=== PATIENT | female | born 1975 | race Two or more races ===

== ENCOUNTER 2017-09-14 10:57 | Outpatient (CLI) | payer MEDICAID ==
[~2017-09-14] VITALS: Ht 167.6 cm; Wt 84.5 kg
[2017-09-14 11:15] VITALS: BP 133/84
[2017-09-14 11:23] LABS: BASOPHILS # (AUTO) 0.05 x10^3/uL (0-0.1); BASOPHILS % (AUTO) 0 % (0-1); EOSINOPHILS # (AUTO) 0.06 x10^3/uL (0-0.4); EOSINOPHILS % (AUTO) 1 % (1-7); LYMPHOCYTES # (AUTO) 1.33 x10^3/uL (1-3.4); LYMPHOCYTES % (AUTO) 12 % (22-44); MD NO; MEAN CORPUSCULAR HEMOGLOBIN 28.4 pg (27.0-34.8); MEAN CORPUSCULAR HGB CONC 33.4 g/dL (32.4-35.8); MEAN CORPUSCULAR VOLUME 85.1 fL (80-100); MEAN PLATELET VOLUME 9.3 fL (7.4-10.4); MONOCYTES # (AUTO) 0.41 x10^3/uL (0.2-0.8); MONOCYTES % (AUTO) 4 % (2-9); NEUTROPHILS # (AUTO) 9.05 x10^3/uL (1.8-6.8); NEUTROPHILS % (AUTO) 83 % (42-75); PLATELET COUNT 247 x10^3/uL (130-400); RED BLOOD COUNT 4.27 x10^6/uL (3.82-5.3); RED CELL DISTRIBUTION WIDTH 13.3 % (9.6-15.2)
[2017-09-14 11:37] LABS: ALANINE AMINOTRANSFERASE 17 U/L (12-78); ALBUMIN 2.7 g/dL (3.4-5.0); ANION GAP 8 mmol/L (5-15); CALCIUM 8.5 mg/dL (8.5-10.1); CHLORIDE 107 mmol/L (98-107)
[2017-09-14 11:40] LABS: ALKALINE PHOSPHATASE 114 U/L (45-117); BILIRUBIN,TOTAL 0.2 mg/dL (0.2-1.0); CREATININE 0.63 mg/dL (0.55-1.02)
[2017-09-14 11:55] LABS: MICROSCOPIC INDICATED
== END 2017-09-14 13:05 | disposition home or self-care (01) ==
LOC: LDOP 10:57
PROVIDERS: ATTEND Obstetrics & Gynecology
DX: O10.913 Unspecified pre-existing hypertension complicating pregnancy, third trimester (principal); Z3A.35 35 weeks gestation of pregnancy
CPT/HCPCS: 36415; 59025; 80053; 81001; 82570; 84156; 84550; 85025; 99201; G0463

== ENCOUNTER 2017-09-22 11:46 | Outpatient (CLI) | payer MEDICAID ==
[2017-09-22 13:10] LABS: BASOPHILS # (AUTO) 0.01 x10^3/uL (0-0.1); BASOPHILS % (AUTO) 0 % (0-1); EOSINOPHILS # (AUTO) 0.12 x10^3/uL (0-0.4); EOSINOPHILS % (AUTO) 1 % (1-7); LYMPHOCYTES # (AUTO) 1.74 x10^3/uL (1-3.4); LYMPHOCYTES % (AUTO) 17 % (22-44); MD NO; MEAN CORPUSCULAR HEMOGLOBIN 28.3 pg (27.0-34.8); MEAN CORPUSCULAR HGB CONC 33.3 g/dL (32.4-35.8); MEAN PLATELET VOLUME 9.6 fL (7.4-10.4); MONOCYTES # (AUTO) 0.46 x10^3/uL (0.2-0.8); MONOCYTES % (AUTO) 5 % (2-9); NEUTROPHILS # (AUTO) 7.86 x10^3/uL (1.8-6.8); NEUTROPHILS % (AUTO) 77 % (42-75); PLATELET COUNT 242 x10^3/uL (130-400); RED BLOOD COUNT 4.14 x10^6/uL (3.82-5.3); RED CELL DISTRIBUTION WIDTH 13.7 % (9.6-15.2)
[2017-09-22 13:18] LABS: ALBUMIN 2.5 g/dL (3.4-5.0); ANION GAP 10 mmol/L (5-15); CALCIUM 8.7 mg/dL (8.5-10.1); CHLORIDE 106 mmol/L (98-107)
[2017-09-22 13:19] LABS: MICROSCOPIC INDICATED
[2017-09-22 13:22] LABS: ALANINE AMINOTRANSFERASE 20 U/L (12-78); ALKALINE PHOSPHATASE 118 U/L (45-117); BILIRUBIN,TOTAL 0.3 mg/dL (0.2-1.0); CREATININE 0.54 mg/dL (0.55-1.02); TOTAL PROTEIN 6.8 g/dL (6.4-8.2)
[2017-09-22 13:23] LABS: BILIRUBIN, DIRECT < 0.1 mg/dL (0.1-0.2)
[2017-09-22 13:34] LABS: CREATININE,URINE RANDOM 53.3 mg/dL
== END 2017-09-22 15:15 | disposition home or self-care (01) ==
LOC: LDOP 11:46
PROVIDERS: ATTEND Obstetrics & Gynecology
DX: O09.523 Supervision of elderly multigravida, third trimester (principal); Z36.89 Encounter for other specified antenatal screening; Z3A.37 37 weeks gestation of pregnancy
CPT/HCPCS: 36415; 59025; 76819; 80053; 81001; 82248; 82570; 84156; 84550; 85025; 99211; G0463

== ENCOUNTER 2017-10-01 10:11 | Outpatient (CLI) | payer MEDICAID ==
[~2017-10-01] VITALS: Ht 167.6 cm; Wt 85.0 kg
[2017-10-01 10:26] VITALS: BP 120/70
[2017-10-01 10:43] LABS: MEAN CORPUSCULAR HEMOGLOBIN 27.5 pg (27.0-34.8); MEAN CORPUSCULAR VOLUME 84.3 fL (80-100); RED BLOOD COUNT 4.06 x10^6/uL (3.82-5.3)
[2017-10-01 10:44] LABS: BASOPHILS # (AUTO) 0.03 x10^3/uL (0-0.1); BASOPHILS % (AUTO) 0 % (0-1); EOSINOPHILS # (AUTO) 0.06 x10^3/uL (0-0.4); EOSINOPHILS % (AUTO) 1 % (1-7); LYMPHOCYTES # (AUTO) 1.43 x10^3/uL (1-3.4); LYMPHOCYTES % (AUTO) 15 % (22-44); MD NO; MEAN CORPUSCULAR HGB CONC 32.6 g/dL (32.4-35.8); MEAN PLATELET VOLUME 9.6 fL (7.4-10.4); MONOCYTES # (AUTO) 0.29 x10^3/uL (0.2-0.8); MONOCYTES % (AUTO) 3 % (2-9); NEUTROPHILS % (AUTO) 81 % (42-75); PLATELET COUNT 202 x10^3/uL (130-400); RED CELL DISTRIBUTION WIDTH 13.9 % (9.6-15.2)
[2017-10-01 10:57] LABS: ALBUMIN 2.5 g/dL (3.4-5.0); ANION GAP 6 mmol/L (5-15); CALCIUM 8.6 mg/dL (8.5-10.1); CHLORIDE 108 mmol/L (98-107)
[2017-10-01 11:01] LABS: ALANINE AMINOTRANSFERASE 15 U/L (12-78); ALKALINE PHOSPHATASE 108 U/L (45-117); BILIRUBIN,TOTAL 0.2 mg/dL (0.2-1.0); CREATININE 0.66 mg/dL (0.55-1.02); TOTAL PROTEIN 6.3 g/dL (6.4-8.2)
[2017-10-01 11:04] LABS: BILIRUBIN, DIRECT < 0.1 mg/dL (0.1-0.2)
[2017-10-01 11:51] LABS: CREATININE,URINE RANDOM 37.3 mg/dL
[2017-10-01 11:56] LABS: MICROSCOPIC NOT IND
== END 2017-10-01 13:42 | disposition home or self-care (01) ==
LOC: LDOP 10:11
PROVIDERS: ATTEND Obstetrics & Gynecology
DX: O26.893 Other specified pregnancy related conditions, third trimester (principal); R10.9 Unspecified abdominal pain; Z3A.38 38 weeks gestation of pregnancy
CPT/HCPCS: 36415; 59025; 76819; 80053; 81003; 82248; 82570; 83615; 84156; 84550; 85025; 99211; G0463

== ENCOUNTER 2017-10-05 07:23 | Inpatient (IN) | payer MEDICAID ==
[~2017-10-05] VITALS: Ht 167.6 cm; Wt 85.0 kg
[2017-10-05] MEDS ORDERED: NEWBORN KIT ONE (10:42)
[2017-10-05] MEDS ORDERED: LIDOCAINE 1%, 20ML ONE (10:42)
[2017-10-05] MEDS ORDERED: OXYTOCIN 30U/ 0.9% NaCL 500ML 500 ML ONE (10:43)
[2017-10-05] MEDS ORDERED: MISOPROSTOL 200 MCG TABLET ONE (10:43)
[2017-10-05] MEDS ORDERED: OXYTOCIN 30U/ 0.9% NaCL 500ML 500 ML IV ONE (11:15)
[2017-10-05] MEDS ORDERED: LACTATED RINGERS 1,000 ML IV SCH ×2 (11:15→21:08)
[2017-10-05] MEDS ORDERED: OXYTOCIN 30U/ 0.9% NaCL 500ML 500 ML IV PRN ×2 (11:15)
[2017-10-05] MEDS ORDERED: PLEASE ENTER HEIGHT AND WEIGHT MC SCH (11:20)
[2017-10-05] MEDS ORDERED: FENTANYL PF 100 MCG/2ML IVPush PRN (11:30)
[2017-10-05] MEDS ORDERED: FENTANYL PF 100 MCG/2ML IV PRN (11:30)
[2017-10-05 11:41] LABS: BASOPHILS # (AUTO) 0.03 x10^3/uL (0-0.1); BASOPHILS % (AUTO) 0 % (0-1); EOSINOPHILS # (AUTO) 0.09 x10^3/uL (0-0.4); EOSINOPHILS % (AUTO) 1 % (1-7); LYMPHOCYTES # (AUTO) 1.46 x10^3/uL (1-3.4); LYMPHOCYTES % (AUTO) 15 % (22-44); MD NO; MEAN CORPUSCULAR HEMOGLOBIN 27.8 pg (27.0-34.8); MEAN CORPUSCULAR HGB CONC 33.1 g/dL (32.4-35.8); MEAN CORPUSCULAR VOLUME 84.1 fL (80-100); MEAN PLATELET VOLUME 9.5 fL (7.4-10.4); MONOCYTES # (AUTO) 0.41 x10^3/uL (0.2-0.8); MONOCYTES % (AUTO) 4 % (2-9); NEUTROPHILS # (AUTO) 7.61 x10^3/uL (1.8-6.8); NEUTROPHILS % (AUTO) 79 % (42-75); PLATELET COUNT 229 x10^3/uL (130-400); RED BLOOD COUNT 3.93 x10^6/uL (3.82-5.3); RED CELL DISTRIBUTION WIDTH 14.4 % (9.6-15.2)
[2017-10-05 11:53] LABS: ALANINE AMINOTRANSFERASE 15 U/L (12-78); ALBUMIN 2.5 g/dL (3.4-5.0); ANION GAP 7 mmol/L (5-15); CALCIUM 8.7 mg/dL (8.5-10.1); CHLORIDE 107 mmol/L (98-107); CREATININE 0.61 mg/dL (0.55-1.02)
[2017-10-05 11:55] LABS: ALKALINE PHOSPHATASE 125 U/L (45-117); BILIRUBIN,TOTAL 0.3 mg/dL (0.2-1.0); TOTAL PROTEIN 6.5 g/dL (6.4-8.2)
[2017-10-05 11:56] LABS: BILIRUBIN, DIRECT < 0.1 mg/dL (0.1-0.2)
[2017-10-05 12:09] LABS: MICROSCOPIC NOT IND
[2017-10-05 12:22] LABS: PROTEIN/CREATININE RATIO,URINE < 135 (0-200); TOTAL PROTEIN,URINE RANDOM < 5 mg/dL (0-12)
[2017-10-05] MEDS: D5%-LACTATED RINGERS 1,000 ML IV SCH ×2 (14:27→23:14)
[2017-10-05] MEDS ORDERED: ONDANSETRON 2MG/ML, 2ML ONE ×2 (18:06→23:33)
[2017-10-05] MEDS ORDERED: CALCIUM CARBONATE 500 MG TAB.CHEW ONE (18:07)
[2017-10-05] MEDS: ONDANSETRON 2MG/ML, 2ML IVPush PRN ×2 (18:21→23:36)
[2017-10-05] MEDS ORDERED: CALCIUM CARBONATE 500 MG TAB.CHEW PO PRN ×2 (18:30)
[2017-10-05] MEDS ORDERED: BUPIVACAINE 0.25% ONE (20:27)
[2017-10-05] MEDS ORDERED: FENTANYL/BUPIV./NS/PF 250 ML EPIDCONT ONE (20:27)
[2017-10-05] MEDS ORDERED: FENTANYL PF 100 MCG/2ML ONE (20:27)
[2017-10-05] MEDS ORDERED: FENTANYL/BUPIV./NS/PF 250 ML EPIDCONT SCH (21:08)
[2017-10-05] MEDS ORDERED: LABETALOL 200 MG TABLET ONE (21:11)
[2017-10-05] MEDS: LABETALOL 200 MG TABLET PO SCH (21:14)
[2017-10-05] MEDS ORDERED: LACTATED RINGERS 1,000 ML IVBOLUS PRN (21:30)
[2017-10-05] MEDS ORDERED: EPHEDRINE 50 MG/ML, 1ML IVPush PRN (21:30)
[2017-10-05] MEDS ORDERED: ONDANSETRON 2MG/ML, 2ML IVPush PRN (21:30)
[2017-10-05] MEDS ORDERED: TERBUTALINE 1 MG/ML, 1ML ONE (22:20)
[2017-10-05] MEDS ORDERED: LACTATED RINGERS 1,000 ML INTUTE SCH (22:30)
[2017-10-05] MEDS ORDERED: LACTATED RINGERS 1,000 ML INTUTE PRN (22:30)
[2017-10-06] MEDS ORDERED: METOCLOPRAMIDE 5 MG/ML, 2ML ONE (00:42)
[2017-10-06] MEDS ORDERED: METOCLOPRAMIDE 5 MG/ML, 2ML IVPush ONE (01:00)
[2017-10-06] MEDS ORDERED: CARBOPROST TROMETHAMINE 250 MCG/ML, 1ML IM PRN (05:00)
[2017-10-06] MEDS ORDERED: ACETAMINOPHEN 325 MG TABLET PO PRN (05:00)
[2017-10-06] MEDS ORDERED: ONDANSETRON 2MG/ML, 2ML IV PRN (05:00)
[2017-10-06] MEDS ORDERED: MISOPROSTOL 200 MCG TABLET PR PRN (05:00)
[2017-10-06] MEDS ORDERED: OXYTOCIN 10 UNITS/ML, 1ML IM PRN (05:00)
[2017-10-06] MEDS ORDERED: HYDROcodone/APAP 5/325 TABLET ONE (05:15)
[2017-10-06] MEDS: HYDROcodone/APAP 5/325 TABLET PO PRN ×7 (05:17→23:32)
[2017-10-06] MEDS: OXYTOCIN 30U/ 0.9% NaCL 500ML 500 ML IV SCH ×2 (05:18→14:54)
[2017-10-06 08:00] VITALS: BP 133/77
[2017-10-06] MEDS: PRENATAL VIT/IRON/FA 1 EACH TABLET PO SCH (08:55)
[2017-10-06] MEDS: LABETALOL 200 MG TABLET PO SCH ×2 (08:57→21:10)
[2017-10-06 11:54] VITALS: BP 125/78
[2017-10-06 12:45] LABS: MEAN CORPUSCULAR HEMOGLOBIN 27.8 pg (27.0-34.8); MEAN CORPUSCULAR VOLUME 84.4 fL (80-100); MEAN PLATELET VOLUME 9.9 fL (7.4-10.4); PLATELET COUNT 197 x10^3/uL (130-400); RED BLOOD COUNT 3.85 x10^6/uL (3.82-5.3); RED CELL DISTRIBUTION WIDTH 14.4 % (9.6-15.2)
[2017-10-06 13:11] LABS: BASOPHILS # (AUTO) 0.03 x10^3/uL (0-0.1); BASOPHILS % (AUTO) 0 % (0-1); EOSINOPHILS # (AUTO) 0.06 x10^3/uL (0-0.4); EOSINOPHILS % (AUTO) 0 % (1-7); LYMPHOCYTES # (AUTO) 1.25 x10^3/uL (1-3.4); LYMPHOCYTES % (AUTO) 9 % (22-44); MD SCAN; MONOCYTES # (AUTO) 0.64 x10^3/uL (0.2-0.8); MONOCYTES % (AUTO) 5 % (2-9); NEUTROPHILS # (AUTO) 12.07 x10^3/uL (1.8-6.8); NEUTROPHILS % (AUTO) 86 % (42-75)
[2017-10-06] MEDS ORDERED: RHOGAM FROM BLOOD BANK 1 NOTE EA IM/IV ONE (15:00)
[2017-10-06 16:00] VITALS: BP 131/73
[2017-10-06] MEDS: DOCUSATE 100 MG CAPSULE PO PRN (19:14)
[2017-10-06 20:15] VITALS: BP 129/82
[2017-10-06 23:30] VITALS: BP 119/68
[2017-10-06] MEDS: IBUPROFEN 600 MG TABLET PO PRN (23:32)
[2017-10-07] MEDS: OXYTOCIN 30U/ 0.9% NaCL 500ML 500 ML IV SCH ×3 (00:54→20:54)
[2017-10-07] MEDS: OXYcodone IR 5MG TABLET PO PRN ×5 (01:26→20:05)
[2017-10-07] MEDS ORDERED: OXYcodone IR 5MG TABLET PO PRN (01:30)
[2017-10-07 05:00] VITALS: BP 117/68
[2017-10-07] MEDS: IBUPROFEN 600 MG TABLET PO PRN ×3 (05:31→17:26)
[2017-10-07 08:10] VITALS: BP 133/71
[2017-10-07] MEDS: PRENATAL VIT/IRON/FA 1 EACH TABLET PO SCH (08:29)
[2017-10-07] MEDS: LABETALOL 200 MG TABLET PO SCH ×2 (08:29→21:10)
[2017-10-07] MEDS: DOCUSATE 100 MG CAPSULE PO PRN ×2 (08:29→20:04)
[2017-10-07] MEDS ORDERED: DIPH,PERTUSS(ACELL),TET VAC/PF NC IM-VACC ONE ×2 (13:18→14:00)
[2017-10-07 19:15] VITALS: BP 148/92
[2017-10-08 00:01] VITALS: BP 138/86
[2017-10-08] MEDS: OXYcodone IR 5MG TABLET PO PRN ×5 (00:07→18:27)
[2017-10-08] MEDS: IBUPROFEN 600 MG TABLET PO PRN ×3 (00:07→14:24)
[2017-10-08 04:28] VITALS: BP 128/82
[2017-10-08] MEDS: OXYTOCIN 30U/ 0.9% NaCL 500ML 500 ML IV SCH (04:51)
[2017-10-08 07:46] VITALS: BP 137/82
[2017-10-08] MEDS: DOCUSATE 100 MG CAPSULE PO PRN (07:53)
[2017-10-08] MEDS: LABETALOL 200 MG TABLET PO SCH (07:53)
[2017-10-08] MEDS: PRENATAL VIT/IRON/FA 1 EACH TABLET PO SCH (07:53)
[2017-10-08 12:30] VITALS: BP 138/81
[2017-10-08] MEDS ORDERED: IBUP-1223 PO (15:53)
[2017-10-08] MEDS ORDERED: HYDR-3240 PO (15:53)
[2017-10-08] MEDS ORDERED: SENN-1 PO (15:54)
[2017-10-08] MEDS ORDERED: OXYC5TAB3 PO (17:57)
== END 2017-10-08 18:58 | disposition home or self-care (01) | DRG 775 ==
LOC: LDIP 09:49 → 2NW 10-06 07:54
PROVIDERS: ADMIT Obstetrics & Gynecology; ATTEND Obstetrics & Gynecology
PROC: 10E0XZZ Delivery of Products of Conception, External Approach (ICD-10-PCS; principal; 2017-10-06)
PROC: 10907ZC Drainage of Amniotic Fluid, Therapeutic from Products of Conception, Via Natural or Artificial Opening (ICD-10-PCS; 2017-10-06)
PROC: 3E033VJ Introduction of Other Hormone into Peripheral Vein, Percutaneous Approach (ICD-10-PCS; 2017-10-06)
PROC: 0HQ9XZZ Repair Perineum Skin, External Approach (ICD-10-PCS; 2017-10-06)
PROC: 3E0R3BZ Introduction of Anesthetic Agent into Spinal Canal, Percutaneous Approach (ICD-10-PCS; 2017-10-06)
PROC: 00HU33Z Insertion of Infusion Device into Spinal Canal, Percutaneous Approach (ICD-10-PCS; 2017-10-06)
PROC: 30233S1 Transfusion of Nonautologous Globulin into Peripheral Vein, Percutaneous Approach (ICD-10-PCS; 2017-10-06)
DX: O14.14 Severe pre-eclampsia complicating childbirth (principal); O70.0 First degree perineal laceration during delivery; Z37.0 Single live birth; Z3A.39 39 weeks gestation of pregnancy; O77.0 Labor and delivery complicated by meconium in amniotic fluid; O71.82 Other specified trauma to perineum and vulva; Z23 Encounter for immunization
CPT/HCPCS: 36415; 80053; 81003; 82248; 82570; 82803; 83615; 84156; 84550; 85025; 85461; 86850; 86900; 88307; 90715; J2405; J2790; J3490; J2590; J2765; J3010; J7120; J7121